=== PATIENT | female | born 1940 | race Caucasian/White ===

== ENCOUNTER 2018-12-20 17:09 | Inpatient (IN) | payer OTHER ==
[2018-12-20] MEDS: DEXAMETHASONE 10 MG/ML 1 ML INJ IV (17:43)
[2018-12-20] MEDS: SODIUM CHLORIDE 0.9% 1L BAG IV* (17:43)
[2018-12-20] MEDS: LEVOFLOXACIN 750MG/D5W (PMX) 150 ML IVPB ×2 (17:43→17:47)
[2018-12-20] MEDS: IPRATROPIUM (NEB) 0.5 MG/2.5 ML AMP INH (17:48)
[2018-12-20] MEDS: LEVALBUTEROL (NEB) 1.25 MG/0.5 ML AMP INH (17:48)
[2018-12-20 17:53] LABS: ADD MAN DIFF? NO
[2018-12-20 17:57] LABS: BASOPHIL # 0.1 10^3/ul (0.0-0.1); BASOPHILS % 0.5 % (0.0-2.0); EOSINOPHILS # 0.1 10^3/ul (0.0-0.5); EOSINOPHILS % 0.5 % (0.0-7.0); HEMATOCRIT 47.6 % (37.0-47.0); HEMOGLOBIN 15.3 g/dl (12.0-16.0); LYMPHOCYTES # 1.8 10^3/ul (0.8-2.9); LYMPHOCYTES % 15.1 % (15.0-51.0); MEAN CORPUSCULAR HEMOGLOBIN 29.1 pg (29.0-33.0); MEAN CORPUSCULAR HGB CONC 32.1 g/dl (32.0-37.0); MEAN CORPUSCULAR VOLUME 90.5 fl (82.0-101.0); MEAN PLATELET VOLUME 11.2 fl (7.4-10.4); MONOCYTES % 8.1 % (0.0-11.0); NEUTROPHIL # 8.9 10^3/ul (1.6-7.5); NEUTROPHILS % 75.6 % (39.0-77.0); PLATELET COUNT 214 10^3/UL (140-415); RED BLOOD COUNT 5.26 10^6/ul (4.20-5.40); RED CELL DISTRIBUTION WIDTH 13.3 % (11.5-14.5)
[2018-12-20 17:57] LABS: WHITE BLOOD COUNT 11.7 10^3/ul (4.8-10.8)
[2018-12-20 18:10] LABS: ADD UMIC YES; UR ASCORBIC ACID NEGATIVE (NEGATIVE); UR BACTERIA FEW /HPF (NONE SEEN); UR GLUCOSE (Dip) NEGATIVE (NEGATIVE); UR NITRITE (Dip) NEGATIVE (NEGATIVE); UR RBC > 182 /HPF (0-5); UR SPECIFIC GRAVITY (Dip) 1.016 (1.003-1.030); UR WBC 90 /HPF (0-5)
[2018-12-20 18:15] LABS: INR 0.89; PROTIME 12.1 Sec (11.9-14.9); PT RATIO 0.9
[2018-12-20 18:16] LABS: PARTIAL THROMBOPLASTIN TIME 41.7 Sec (23.0-35.0)
[2018-12-20 18:22] LABS: ALANINE AMINOTRANSFERASE 79 IU/L (13-69); ALBUMIN/GLOBULIN RATIO 1.29; ALKALINE PHOSPHATASE 101 IU/L (42-121); ANION GAP 7 (5-13); ASPARTATE AMINO TRANSFERASE 54 IU/L (15-46); BILIRUBIN,INDIRECT 0.7 mg/dl (0-1.1); BILIRUBIN,TOTAL 0.7 mg/dl (0.2-1.3); BLOOD UREA NITROGEN 19 mg/dl (7-20); CALCIUM 9.1 mg/dl (8.4-10.2); CARBON DIOXIDE 37 mmol/L (21-31); CHLORIDE 92 mmol/L (97-110); CREATININE 0.46 mg/dl (0.44-1.00); GLUCOSE 136 mg/dl (70-220); POTASSIUM 4.5 mmol/L (3.5-5.1); SODIUM 136 mmol/L (135-144); TOTAL PROTEIN 7.1 g/dl (6.1-8.1)
[2018-12-20 18:33] LABS: TROPONIN-I < 0.012 ng/ml (0.000-0.120)
[2018-12-20 19:32] LABS: AADO2 Arterial 26.1 mmHg (7.0-24.0); Allen Test ACCEPTAB; Arterial Base Excess 5.5 mmol/L (-3.0-3); Arterial Blood Gas Oxygen Sat 96.3 mmHG (95.0-100.0); Arterial COHb 0.8 % (0.0-3.0); Arterial Fraction of Oxyhgb 95.2 % (93.0-99.0); Arterial HCO3 35.2 mmol/L (22.0-26.0); Arterial MetHb 0.3 % (0.0-1.5); Arterial pCO2 76.3 mmhg (35-45); MODE NASAL CANNULA; Site Left Radial
[2018-12-20] MEDS: SOD CHLORIDE 0.9% 100 ML (19:45)
[2018-12-20] MEDS: IOHEXOL 100 ML (19:45)
[2018-12-20] MEDS ORDERED: ONDANSETRON 4 MG INJ IV (20:00)
[2018-12-20] MEDS ORDERED: ACETAMINOPHEN 325 MG TAB PO (20:00)
[2018-12-20 20:35] LABS: UR CLARITY SLIGHTLY CLOUDY (CLEAR); UR COLOR AMBER (YELLOW)
[2018-12-20 20:36] LABS: URINE PH (Dip) 6 (5.0-9.0)
[2018-12-20 20:37] LABS: UR BLOOD (Dip) NEGATIVE (NEGATIVE); UR TOTAL PROTEIN (Dip) 3+ mg/dl (NEGATIVE)
[2018-12-20 20:38] LABS: LACTIC ACID 1.9 mmol/L (0.5-2.0)
[2018-12-20 20:42] LABS: UR UROBILINOGEN (Dip) 1+ mg/dL (NEGATIVE)
[2018-12-20 20:44] LABS: UR KETONES (Dip) TRACE mg/dL (NEGATIVE)
[2018-12-20 20:45] LABS: UR BILIRUBIN (Dip) 1+ mg/dL (NEGATIVE)
[2018-12-20 20:46] LABS: UR LEUKOCYTE ESTERASE (Dip) NEGATIVE Leu/ul (NEGATIVE)
[2018-12-20] MEDS: DILTIAZEM 25 MG INJ IV ×2 (20:48→20:54)
[2018-12-20 20:59] LABS: UR MUCUS MANY /HPF (NONE SEEN)
[2018-12-20 23:53] LABS: LACTIC ACID 2.7 mmol/L (0.5-2.0)
[2018-12-21] MEDS ORDERED: NACL 0.9% 3 ML SYG IV (00:30)
[2018-12-21] MEDS ORDERED: ONDANSETRON 4 MG INJ IV (00:30)
[2018-12-21] MEDS ORDERED: IPRATROPIUM (NEB) 0.5 MG/2.5 ML AMP NEB (00:30)
[2018-12-21] MEDS: ENOXAPARIN 60 MG/0.6 ML SYG SC (00:34)
[2018-12-21 01:01] LABS: CREATINE KINASE 24 IU/L (23-200)
[2018-12-21 01:14] LABS: CK INDEX 11.4; CK-MB 2.73 ng/ml (0.0-2.4); TROPONIN-I < 0.012 ng/ml (0.000-0.120)
[2018-12-21 03:18] LABS: AADO2 Arterial 47.6 mmHg (7.0-24.0); Allen Test ACCEPTAB; Arterial Base Excess 7.1 mmol/L (-3.0-3); Arterial Blood Gas Oxygen Sat 95.6 mmHG (95.0-100.0); Arterial COHb 0.8 % (0.0-3.0); Arterial Fraction of Oxyhgb 94.5 % (93.0-99.0); Arterial HCO3 35.8 mmol/L (22.0-26.0); Arterial MetHb 0.3 % (0.0-1.5); Arterial pCO2 68.6 mmhg (35-45); MODE NASA CANNULA; Site Left Radial
[2018-12-21] MEDS: PANTOPRAZOLE (EC) 40 MG TAB PO (05:19)
[2018-12-21 05:36] LABS: AADO2 Arterial 38.1 mmHg (7.0-24.0); Allen Test ACCEPTAB; Arterial Base Excess 9.1 mmol/L (-3.0-3); Arterial Blood Gas Oxygen Sat 96.2 mmHG (95.0-100.0); Arterial COHb 0.7 % (0.0-3.0); Arterial Fraction of Oxyhgb 95.3 % (93.0-99.0); Arterial HCO3 38.4 mmol/L (22.0-26.0); Arterial MetHb 0.2 % (0.0-1.5); Arterial pCO2 74.4 mmhg (35-45); MODE NASAL CANNULA; Site Right Radial
[2018-12-21 06:49] LABS: CREATINE KINASE < 20 IU/L (23-200)
[2018-12-21 06:51] LABS: CK-MB 2.87 ng/ml (0.0-2.4); TROPONIN-I < 0.012 ng/ml (0.000-0.120)
[2018-12-21] MEDS: LEVOFLOXACIN 500MG/D5W (PMX) 100 ML IVPB (08:17)
[2018-12-21] MEDS: ENOXAPARIN 40 MG/0.4 ML SYG SC (08:17)
[2018-12-21] MEDS: METHYLPREDNISOLONE 125 MG INJ IV (08:17)
[2018-12-21] MEDS: DILTIAZEM 60 MG TAB PO ×2 (10:52→21:26)
[2018-12-21 11:15] LABS: CK-MB 2.51 ng/ml (0.0-2.4); TROPONIN-I < 0.012 ng/ml (0.000-0.120)
[2018-12-21 11:16] LABS: CREATINE KINASE < 20 IU/L (23-200)
[2018-12-21] MEDS ORDERED: LEVALBUTEROL (NEB) 0.63 MG/3 ML AMP HHN (12:30)
[2018-12-21 13:38] LABS: LACTIC ACID 0.9 mmol/L (0.5-2.0)
[2018-12-21] MEDS ORDERED: GUAIFENESIN 20 MG/ML 5ML CUP PO (17:00)
[2018-12-21] MEDS ORDERED: CEPASTAT LOZENGE MT (17:00)
[2018-12-21 18:24] LABS: CREATINE KINASE 23 IU/L (23-200)
[2018-12-21] MEDS: ACETAMINOPHEN 325 MG TAB PO (18:33)
[2018-12-21 18:37] LABS: CK INDEX 11.8; CK-MB 2.71 ng/ml (0.0-2.4); TROPONIN-I < 0.012 ng/ml (0.000-0.120)
[2018-12-21] MEDS ORDERED: NON-FORMULARY/PATIENT OWN MED (Lovastatin* 20 MG) PO (21:00)
[2018-12-21] MEDS: ATORVASTATIN 10 MG TAB PO (21:25)
[2018-12-22 05:54] LABS: ADD MAN DIFF? NO
[2018-12-22] MEDS: PANTOPRAZOLE (EC) 40 MG TAB PO (06:00)
[2018-12-22 06:04] LABS: WHITE BLOOD COUNT 18.2 10^3/ul (4.8-10.8)
[2018-12-22 06:04] LABS: ABNORMAL IP MESSAGE 1; BASOPHILS % 0.1 % (0.0-2.0); HEMATOCRIT 45.6 % (37.0-47.0); HEMOGLOBIN 14.5 g/dl (12.0-16.0); LYMPHOCYTES # 1.9 10^3/ul (0.8-2.9); LYMPHOCYTES % 10.6 % (15.0-51.0); MEAN CORPUSCULAR HEMOGLOBIN 29.2 pg (29.0-33.0); MEAN CORPUSCULAR HGB CONC 31.8 g/dl (32.0-37.0); MEAN CORPUSCULAR VOLUME 91.9 fl (82.0-101.0); MONOCYTE # 1.6 10^3/ul (0.3-0.9); MONOCYTES % 8.9 % (0.0-11.0); NEUTROPHIL # 14.5 10^3/ul (1.6-7.5); NEUTROPHILS % 79.7 % (39.0-77.0); PLATELET COUNT 219 10^3/UL (140-415); RED BLOOD COUNT 4.96 10^6/ul (4.20-5.40); RED CELL DISTRIBUTION WIDTH 13.5 % (11.5-14.5)
[2018-12-22 06:16] LABS: POSITIVE DIFF @See below
[2018-12-22 06:16] LABS: HEMOGLOBIN A1C 5.3 % (0-5.9)
[2018-12-22 06:40] LABS: ALANINE AMINOTRANSFERASE 60 IU/L (13-69); ALBUMIN 3.3 g/dl (3.3-4.9); ALBUMIN/GLOBULIN RATIO 1.17; ALKALINE PHOSPHATASE 76 IU/L (42-121); ASPARTATE AMINO TRANSFERASE 35 IU/L (15-46); BILIRUBIN,INDIRECT 0.4 mg/dl (0-1.1); BILIRUBIN,TOTAL 0.4 mg/dl (0.2-1.3); BLOOD UREA NITROGEN 12 mg/dl (7-20); CALCIUM 9.3 mg/dl (8.4-10.2); CHLORIDE 91 mmol/L (97-110); CHOL/HDL RATIO 3.4 RATIO; CHOLESTEROL 122 mg/dl (100-200); CREATININE 0.58 mg/dl (0.44-1.00); GLUCOSE 115 mg/dl (70-220); HDL CHOLESTEROL 35 mg/dl (33-92); LDL CHOLESTEROL,CALCULATED 73 mg/dl; MAGNESIUM 2.1 mg/dl (1.7-2.5); POTASSIUM 4.9 mmol/L (3.5-5.1); SODIUM 139 mmol/L (135-144); TOTAL PROTEIN 6.1 g/dl (6.1-8.1); TRIGLYCERIDES 69 mg/dl (0-149)
[2018-12-22 07:04] LABS: THYROID STIMULATING HORMONE 0.096 MIU/L (0.465-4.680)
[2018-12-22 07:20] LABS: ANION GAP 3 (5-13)
[2018-12-22 07:23] LABS: CARBON DIOXIDE 45 mmol/L (21-31)
[2018-12-22] MEDS: METHYLPREDNISOLONE 125 MG INJ IV ×2 (08:33→18:14)
[2018-12-22] MEDS: LEVOFLOXACIN 500MG/D5W (PMX) 100 ML IVPB (08:33)
[2018-12-22] MEDS: DILTIAZEM 60 MG TAB PO ×3 (08:34→21:06)
[2018-12-22] MEDS: ENOXAPARIN 40 MG/0.4 ML SYG SC (08:42)
[2018-12-22] MEDS: IPRATROPIUM (NEB) 0.5 MG/2.5 ML AMP HHN ×2 (13:30→19:51)
[2018-12-22] MEDS: LEVALBUTEROL (NEB) 0.63 MG/3 ML AMP HHN ×2 (13:31→19:52)
[2018-12-22] MEDS: DIGOXIN 500 MCG INJ IV ×3 (13:46→21:10)
[2018-12-22] MEDS ORDERED: ALBUTEROL/IPRATROPIUM (NEB) 3 ML AMP HHN (14:00)
[2018-12-22] MEDS: DILTIAZEM-D5W 125MG/125ML DRIP 125 ML IV ×3 (15:13→16:36)
[2018-12-22] MEDS ORDERED: DILTIAZEM 60 MG TAB PO (16:30)
[2018-12-22] MEDS: ATORVASTATIN 10 MG TAB PO (21:05)
[2018-12-22] MEDS: ENOXAPARIN 60 MG/0.6 ML SYG SC (21:08)
[2018-12-23] MEDS: LEVALBUTEROL (NEB) 0.63 MG/3 ML AMP HHN ×4 (01:10→19:46)
[2018-12-23] MEDS: IPRATROPIUM (NEB) 0.5 MG/2.5 ML AMP HHN ×4 (01:10→19:46)
[2018-12-23] MEDS: METHYLPREDNISOLONE 125 MG INJ IV ×3 (01:57→17:56)
[2018-12-23 06:22] LABS: ADD MAN DIFF? NO
[2018-12-23 06:26] LABS: BASOPHILS % 0.1 % (0.0-2.0); HEMATOCRIT 47.1 % (37.0-47.0); HEMOGLOBIN 14.6 g/dl (12.0-16.0); LYMPHOCYTES # 0.8 10^3/ul (0.8-2.9); LYMPHOCYTES % 5.5 % (15.0-51.0); MEAN CORPUSCULAR VOLUME 93.6 fl (82.0-101.0); MEAN PLATELET VOLUME 10.7 fl (7.4-10.4); MONOCYTE # 0.3 10^3/ul (0.3-0.9); MONOCYTES % 1.8 % (0.0-11.0); NEUTROPHIL # 13.1 10^3/ul (1.6-7.5); NEUTROPHILS % 91.7 % (39.0-77.0); PLATELET COUNT 232 10^3/UL (140-415); RED BLOOD COUNT 5.03 10^6/ul (4.20-5.40); RED CELL DISTRIBUTION WIDTH 13.3 % (11.5-14.5)
[2018-12-23 06:26] LABS: WHITE BLOOD COUNT 14.2 10^3/ul (4.8-10.8)
[2018-12-23] MEDS: PANTOPRAZOLE (EC) 40 MG TAB PO (06:29)
[2018-12-23 06:46] LABS: CREATINE KINASE < 20 IU/L (23-200)
[2018-12-23 06:48] LABS: ALANINE AMINOTRANSFERASE 54 IU/L (13-69); ALBUMIN 3.2 g/dl (3.3-4.9); ALBUMIN/GLOBULIN RATIO 1.33; ALKALINE PHOSPHATASE 73 IU/L (42-121); ASPARTATE AMINO TRANSFERASE 25 IU/L (15-46); BILIRUBIN,INDIRECT 0.4 mg/dl (0-1.1); BILIRUBIN,TOTAL 0.4 mg/dl (0.2-1.3); BLOOD UREA NITROGEN 17 mg/dl (7-20); CALCIUM 9.1 mg/dl (8.4-10.2); CHLORIDE 90 mmol/L (97-110); CREATININE 0.51 mg/dl (0.44-1.00); GLUCOSE 149 mg/dl (70-220); MAGNESIUM 2.1 mg/dl (1.7-2.5); POTASSIUM 5.2 mmol/L (3.5-5.1); SODIUM 139 mmol/L (135-144); TOTAL PROTEIN 5.6 g/dl (6.1-8.1)
[2018-12-23 06:56] LABS: B-TYPE NATRIURETIC PEPTIDE 3090 PG/ML (0-450)
[2018-12-23 06:58] LABS: CK-MB 2.43 ng/ml (0.0-2.4)
[2018-12-23 07:04] LABS: FREE T4 (FREE THYROXINE) 1.63 ng/dl (0.78-2.44)
[2018-12-23 07:15] LABS: ANION GAP 0 (5-13); CARBON DIOXIDE 49 mmol/L (21-31)
[2018-12-23] MEDS: LEVOFLOXACIN 500MG/D5W (PMX) 100 ML IVPB (08:12)
[2018-12-23] MEDS: DILTIAZEM 60 MG TAB PO ×2 (08:12→13:08)
[2018-12-23] MEDS: ENOXAPARIN 60 MG/0.6 ML SYG SC ×2 (08:27→21:15)
[2018-12-23] MEDS: DILTIAZEM-D5W 125MG/125ML DRIP 125 ML IV ×2 (09:42→13:39)
[2018-12-23 09:44] LABS: AADO2 Arterial 29.1 mmHg (7.0-24.0); Allen Test ACCEPTAB; Arterial Base Excess 14.2 mmol/L (-3.0-3); Arterial Blood Gas Oxygen Sat 90.2 mmHG (95.0-100.0); Arterial HCO3 45.5 mmol/L (22.0-26.0); Arterial MetHb 0.3 % (0.0-1.5); Arterial pCO2 88.4 mmhg (35-45); MODE NASAL CANNULA; Site Right Radial
[2018-12-23] MEDS: DILTIAZEM 90 MG TAB PO ×2 (17:55→21:17)
[2018-12-23] MEDS: ATORVASTATIN 10 MG TAB PO (21:17)
[2018-12-24] MEDS: LEVALBUTEROL (NEB) 0.63 MG/3 ML AMP HHN ×4 (01:23→19:43)
[2018-12-24] MEDS: IPRATROPIUM (NEB) 0.5 MG/2.5 ML AMP HHN ×4 (01:23→19:43)
[2018-12-24] MEDS: METHYLPREDNISOLONE 125 MG INJ IV ×3 (01:53→17:11)
[2018-12-24 06:19] LABS: ADD MAN DIFF? NO
[2018-12-24 06:23] LABS: WHITE BLOOD COUNT 16.2 10^3/ul (4.8-10.8)
[2018-12-24 06:23] LABS: BASOPHILS % 0.1 % (0.0-2.0); HEMATOCRIT 48.1 % (37.0-47.0); HEMOGLOBIN 14.8 g/dl (12.0-16.0); LYMPHOCYTES # 0.7 10^3/ul (0.8-2.9); MEAN CORPUSCULAR HEMOGLOBIN 28.7 pg (29.0-33.0); MEAN CORPUSCULAR HGB CONC 30.8 g/dl (32.0-37.0); MEAN CORPUSCULAR VOLUME 93.2 fl (82.0-101.0); MEAN PLATELET VOLUME 10.4 fl (7.4-10.4); MONOCYTE # 0.6 10^3/ul (0.3-0.9); MONOCYTES % 3.8 % (0.0-11.0); NEUTROPHIL # 14.8 10^3/ul (1.6-7.5); NEUTROPHILS % 91.1 % (39.0-77.0); PLATELET COUNT 229 10^3/UL (140-415); RED BLOOD COUNT 5.16 10^6/ul (4.20-5.40); RED CELL DISTRIBUTION WIDTH 13.2 % (11.5-14.5)
[2018-12-24 06:38] LABS: BLOOD UREA NITROGEN 24 mg/dl (7-20); CALCIUM 9.3 mg/dl (8.4-10.2); CHLORIDE 89 mmol/L (97-110); CREATININE 0.58 mg/dl (0.44-1.00); GLUCOSE 184 mg/dl (70-220); POTASSIUM 4.9 mmol/L (3.5-5.1); SODIUM 138 mmol/L (135-144)
[2018-12-24] MEDS: PANTOPRAZOLE (EC) 40 MG TAB PO (06:39)
[2018-12-24 06:55] LABS: ANION GAP 5 (5-13); CARBON DIOXIDE 44 mmol/L (21-31)
[2018-12-24] MEDS: LEVOFLOXACIN 500MG/D5W (PMX) 100 ML IVPB (08:55)
[2018-12-24] MEDS: DILTIAZEM (CD) 180 MG CAP PO ×2 (08:56→20:25)
[2018-12-24] MEDS: PROPRANOLOL 20 MG TAB PO ×3 (08:56→20:25)
[2018-12-24] MEDS: ENOXAPARIN 60 MG/0.6 ML SYG SC ×2 (09:05→20:33)
[2018-12-24] MEDS: ATORVASTATIN 10 MG TAB PO (20:25)
[2018-12-25] MEDS: LEVALBUTEROL (NEB) 0.63 MG/3 ML AMP HHN ×4 (02:02→19:56)
[2018-12-25] MEDS: IPRATROPIUM (NEB) 0.5 MG/2.5 ML AMP HHN ×4 (02:02→19:56)
[2018-12-25] MEDS: METHYLPREDNISOLONE 125 MG INJ IV ×2 (02:49→08:18)
[2018-12-25] MEDS: PANTOPRAZOLE (EC) 40 MG TAB PO (06:23)
[2018-12-25] MEDS: OPHTHALMIC IRRIG SOLUTION 120 ML BOTH EYES (06:29)
[2018-12-25] MEDS: LEVOFLOXACIN 500MG/D5W (PMX) 100 ML IVPB (08:18)
[2018-12-25] MEDS: PROPRANOLOL 20 MG TAB PO ×2 (08:18→12:41)
[2018-12-25] MEDS: DILTIAZEM (CD) 180 MG CAP PO ×2 (08:18→20:56)
[2018-12-25] MEDS: ENOXAPARIN 60 MG/0.6 ML SYG SC (09:28)
[2018-12-25 12:31] LABS: AADO2 Arterial 53.6 mmHg (7.0-24.0); Allen Test ACCEPTAB; Arterial Base Excess 12.7 mmol/L (-3.0-3); Arterial Blood Gas Oxygen Sat 92.8 mmHG (95.0-100.0); Arterial Fraction of Oxyhgb 91.6 % (93.0-99.0); Arterial HCO3 42.9 mmol/L (22.0-26.0); Arterial MetHb 0.3 % (0.0-1.5); Arterial pCO2 79.5 mmhg (35-45); MODE NASAL CANNULA; Site Right Radial
[2018-12-25 13:01] LABS: FREE T3 2.89 pg/ml (2.77-5.27)
[2018-12-25] MEDS: METHYLPREDNISOLONE 40 MG INJ IV (17:07)
[2018-12-25] MEDS: TIOTROPIUM 18 MCG CAPSULE INHA DEV INH (18:56)
[2018-12-25] MEDS: FLUTICASONE/VILANTEROL 100-25 INH (18:57)
[2018-12-25] MEDS: METOPROLOL (XL) 50 MG TAB PO (20:56)
[2018-12-25] MEDS: MONTELUKAST 10 MG TAB PO (20:56)
[2018-12-25] MEDS: ATORVASTATIN 10 MG TAB PO (20:56)
[2018-12-25] MEDS: METHIMAZOLE 5 MG TAB PO (20:56)
[2018-12-26] MEDS: METHYLPREDNISOLONE 40 MG INJ IV ×3 (00:10→22:02)
[2018-12-26] MEDS: IPRATROPIUM (NEB) 0.5 MG/2.5 ML AMP HHN ×4 (01:34→19:38)
[2018-12-26] MEDS: LEVALBUTEROL (NEB) 0.63 MG/3 ML AMP HHN ×4 (01:34→19:32)
[2018-12-26] MEDS: PANTOPRAZOLE (EC) 40 MG TAB PO (05:15)
[2018-12-26 08:28] LABS: ADD MAN DIFF? NO
[2018-12-26 08:35] LABS: BASOPHILS % 0.1 % (0.0-2.0); HEMATOCRIT 51.2 % (37.0-47.0); HEMOGLOBIN 15.7 g/dl (12.0-16.0); LYMPHOCYTES # 0.9 10^3/ul (0.8-2.9); MEAN CORPUSCULAR HGB CONC 30.7 g/dl (32.0-37.0); MEAN CORPUSCULAR VOLUME 94.5 fl (82.0-101.0); MEAN PLATELET VOLUME 10.5 fl (7.4-10.4); MONOCYTE # 0.6 10^3/ul (0.3-0.9); NEUTROPHIL # 12.9 10^3/ul (1.6-7.5); NEUTROPHILS % 89.1 % (39.0-77.0); PLATELET COUNT 246 10^3/UL (140-415); RED BLOOD COUNT 5.42 10^6/ul (4.20-5.40); RED CELL DISTRIBUTION WIDTH 13.2 % (11.5-14.5)
[2018-12-26 08:35] LABS: WHITE BLOOD COUNT 14.5 10^3/ul (4.8-10.8)
[2018-12-26] MEDS: LEVOFLOXACIN 500MG/D5W (PMX) 100 ML IVPB (09:18)
[2018-12-26] MEDS: METOPROLOL (XL) 50 MG TAB PO ×2 (09:19→22:04)
[2018-12-26] MEDS: DILTIAZEM (CD) 180 MG CAP PO ×2 (09:19→22:03)
[2018-12-26] MEDS: TIOTROPIUM 18 MCG CAPSULE INHA DEV INH (09:20)
[2018-12-26] MEDS: FLUTICASONE/VILANTEROL 100-25 INH (09:20)
[2018-12-26] MEDS: APIXABAN 5 MG TABLET PO (22:03)
[2018-12-26] MEDS: MONTELUKAST 10 MG TAB PO (22:03)
[2018-12-26] MEDS: ATORVASTATIN 10 MG TAB PO (22:03)
[2018-12-26] MEDS: METHIMAZOLE 5 MG TAB PO (22:04)
[2018-12-27] MEDS: IPRATROPIUM (NEB) 0.5 MG/2.5 ML AMP HHN ×4 (01:54→19:58)
[2018-12-27] MEDS: LEVALBUTEROL (NEB) 0.63 MG/3 ML AMP HHN ×4 (01:54→19:58)
[2018-12-27] MEDS: PANTOPRAZOLE (EC) 40 MG TAB PO (05:30)
[2018-12-27 06:07] LABS: ADD MAN DIFF? NO
[2018-12-27 06:08] LABS: BASOPHILS % 0.1 % (0.0-2.0); HEMATOCRIT 49.8 % (37.0-47.0); HEMOGLOBIN 15.3 g/dl (12.0-16.0); LYMPHOCYTES % 5.9 % (15.0-51.0); MEAN CORPUSCULAR HGB CONC 30.7 g/dl (32.0-37.0); MEAN CORPUSCULAR VOLUME 94.3 fl (82.0-101.0); MEAN PLATELET VOLUME 10.8 fl (7.4-10.4); MONOCYTE # 0.9 10^3/ul (0.3-0.9); MONOCYTES % 5.5 % (0.0-11.0); NEUTROPHIL # 14.8 10^3/ul (1.6-7.5); NEUTROPHILS % 87.7 % (39.0-77.0); PLATELET COUNT 234 10^3/UL (140-415); RED BLOOD COUNT 5.28 10^6/ul (4.20-5.40); RED CELL DISTRIBUTION WIDTH 13.4 % (11.5-14.5)
[2018-12-27 06:08] LABS: WHITE BLOOD COUNT 16.9 10^3/ul (4.8-10.8)
[2018-12-27 07:02] LABS: BLOOD UREA NITROGEN 25 mg/dl (7-20); CALCIUM 9.2 mg/dl (8.4-10.2); CHLORIDE 87 mmol/L (97-110); CREATININE 0.52 mg/dl (0.44-1.00); GLUCOSE 139 mg/dl (70-220); SODIUM 135 mmol/L (135-144)
[2018-12-27 07:18] LABS: ANION GAP 1 (5-13)
[2018-12-27 07:23] LABS: CARBON DIOXIDE 47 mmol/L (21-31)
[2018-12-27] MEDS: APIXABAN 5 MG TABLET PO ×2 (08:56→20:35)
[2018-12-27] MEDS: TIOTROPIUM 18 MCG CAPSULE INHA DEV INH (08:56)
[2018-12-27] MEDS: METOPROLOL (XL) 50 MG TAB PO ×2 (08:56→20:35)
[2018-12-27] MEDS: DILTIAZEM (CD) 180 MG CAP PO ×2 (08:57→20:35)
[2018-12-27] MEDS: METHYLPREDNISOLONE 40 MG INJ IV ×2 (08:57→20:35)
[2018-12-27] MEDS: FLUTICASONE/VILANTEROL 100-25 INH (08:58)
[2018-12-27] MEDS: MONTELUKAST 10 MG TAB PO (20:34)
[2018-12-27] MEDS: ATORVASTATIN 10 MG TAB PO (20:35)
[2018-12-27] MEDS: METHIMAZOLE 5 MG TAB PO (20:35)
[2018-12-28] MEDS: LEVALBUTEROL (NEB) 0.63 MG/3 ML AMP HHN ×4 (01:39→21:03)
[2018-12-28] MEDS: IPRATROPIUM (NEB) 0.5 MG/2.5 ML AMP HHN ×4 (01:39→21:03)
[2018-12-28] MEDS: PANTOPRAZOLE (EC) 40 MG TAB PO (06:37)
[2018-12-28] MEDS: APIXABAN 5 MG TABLET PO ×2 (09:27→21:30)
[2018-12-28] MEDS: DILTIAZEM (CD) 180 MG CAP PO ×2 (09:28→21:29)
[2018-12-28] MEDS: METOPROLOL (XL) 50 MG TAB PO ×2 (09:29→21:30)
[2018-12-28] MEDS: METHYLPREDNISOLONE 40 MG INJ IV ×2 (09:29→21:30)
[2018-12-28] MEDS: FLUTICASONE/VILANTEROL 100-25 INH (11:07)
[2018-12-28] MEDS: TIOTROPIUM 18 MCG CAPSULE INHA DEV INH (11:07)
[2018-12-28] MEDS: METHIMAZOLE 5 MG TAB PO (21:29)
[2018-12-28] MEDS: MONTELUKAST 10 MG TAB PO (21:29)
[2018-12-28] MEDS: ATORVASTATIN 10 MG TAB PO (21:29)
[2018-12-29] MEDS: IPRATROPIUM (NEB) 0.5 MG/2.5 ML AMP HHN ×4 (02:17→20:10)
[2018-12-29] MEDS: LEVALBUTEROL (NEB) 0.63 MG/3 ML AMP HHN ×4 (02:17→20:10)
[2018-12-29] MEDS: PANTOPRAZOLE (EC) 40 MG TAB PO (05:59)
[2018-12-29] MEDS: METHYLPREDNISOLONE 40 MG INJ IV ×2 (08:55→20:43)
[2018-12-29] MEDS: DILTIAZEM (CD) 180 MG CAP PO ×2 (08:56→20:43)
[2018-12-29] MEDS: METOPROLOL (XL) 50 MG TAB PO ×2 (08:57→20:44)
[2018-12-29] MEDS: APIXABAN 5 MG TABLET PO ×2 (08:57→20:43)
[2018-12-29] MEDS: FLUTICASONE/VILANTEROL 100-25 INH (09:03)
[2018-12-29] MEDS: TIOTROPIUM 18 MCG CAPSULE INHA DEV INH (09:03)
[2018-12-29] MEDS: ATORVASTATIN 10 MG TAB PO (20:44)
[2018-12-29] MEDS: METHIMAZOLE 5 MG TAB PO (20:44)
[2018-12-29] MEDS: MONTELUKAST 10 MG TAB PO (20:44)
[2018-12-30] MEDS: IPRATROPIUM (NEB) 0.5 MG/2.5 ML AMP HHN ×3 (02:00→13:37)
[2018-12-30] MEDS: LEVALBUTEROL (NEB) 0.63 MG/3 ML AMP HHN ×3 (02:00→13:37)
[2018-12-30] MEDS: PANTOPRAZOLE (EC) 40 MG TAB PO (05:15)
[2018-12-30 05:52] LABS: ADD MAN DIFF? NO
[2018-12-30 05:59] LABS: WHITE BLOOD COUNT 15.8 10^3/ul (4.8-10.8)
[2018-12-30 05:59] LABS: BASOPHILS % 0.2 % (0.0-2.0); HEMATOCRIT 45.1 % (37.0-47.0); HEMOGLOBIN 14.1 g/dl (12.0-16.0); LYMPHOCYTES # 0.8 10^3/ul (0.8-2.9); LYMPHOCYTES % 4.9 % (15.0-51.0); MEAN CORPUSCULAR HGB CONC 31.3 g/dl (32.0-37.0); MEAN CORPUSCULAR VOLUME 92.8 fl (82.0-101.0); MEAN PLATELET VOLUME 11.4 fl (7.4-10.4); MONOCYTE # 0.8 10^3/ul (0.3-0.9); MONOCYTES % 5.3 % (0.0-11.0); NEUTROPHILS % 88.6 % (39.0-77.0); PLATELET COUNT 176 10^3/UL (140-415); RED BLOOD COUNT 4.86 10^6/ul (4.20-5.40); RED CELL DISTRIBUTION WIDTH 13.3 % (11.5-14.5)
[2018-12-30 06:30] LABS: DIGOXIN < 0.4 ng/ml (1.0-2.0)
[2018-12-30 06:31] LABS: ALANINE AMINOTRANSFERASE 36 IU/L (13-69); ALBUMIN 2.7 g/dl (3.3-4.9); ALBUMIN/GLOBULIN RATIO 1.12; ALKALINE PHOSPHATASE 58 IU/L (42-121); ASPARTATE AMINO TRANSFERASE 19 IU/L (15-46); BILIRUBIN,INDIRECT 0.7 mg/dl (0-1.1); BILIRUBIN,TOTAL 0.7 mg/dl (0.2-1.3); BLOOD UREA NITROGEN 21 mg/dl (7-20); CALCIUM 8.9 mg/dl (8.4-10.2); CHLORIDE 89 mmol/L (97-110); GLUCOSE 157 mg/dl (70-220); POTASSIUM 4.9 mmol/L (3.5-5.1); SODIUM 136 mmol/L (135-144); TOTAL PROTEIN 5.1 g/dl (6.1-8.1)
[2018-12-30 07:12] LABS: ANION GAP 2 (5-13)
[2018-12-30 07:15] LABS: CARBON DIOXIDE 45 mmol/L (21-31)
[2018-12-30] MEDS: DIGOXIN 500 MCG INJ IV (09:11)
[2018-12-30] MEDS: FLUTICASONE/VILANTEROL 100-25 INH (09:11)
[2018-12-30] MEDS: TIOTROPIUM 18 MCG CAPSULE INHA DEV INH (09:12)
[2018-12-30] MEDS: METHYLPREDNISOLONE 40 MG INJ IV (09:12)
[2018-12-30] MEDS: APIXABAN 5 MG TABLET PO (09:13)
[2018-12-30] MEDS: DILTIAZEM (CD) 180 MG CAP PO (09:13)
[2018-12-30] MEDS: METOPROLOL (XL) 50 MG TAB PO (09:13)
== END 2018-12-30 14:10 | disposition home health service (06) | DRG 190 ==
LOC: 6WM 19:42 → E/R 17:09
DX: J44.1 Chronic obstructive pulmonary disease with (acute) exacerbation (principal); J96.21 Acute and chronic respiratory failure with hypoxia; J96.22 Acute and chronic respiratory failure with hypercapnia; I26.99 Other pulmonary embolism without acute cor pulmonale; I48.91 Unspecified atrial fibrillation; E05.90 Thyrotoxicosis, unspecified without thyrotoxic crisis or storm; I10 Essential (primary) hypertension; E78.5 Hyperlipidemia, unspecified; F41.9 Anxiety disorder, unspecified
CPT/HCPCS: 36415; 36600; 71045; 71275; 80048; 80053; 80061; 80162; 81001; 82550; 82553; 82803; 82962; 83036; 83605; 83735; 83880; 84439; 84443; 84481; 84484; 85025; 85610; 85730; 87040-91; 87086; 93005; 93306; 94640; 94644; 94660; 94664; 96374; 96375; 97116; 97162; 97167; 97530; 99285-25

== ENCOUNTER 2018-12-31 04:19 | Inpatient (IN) | payer OTHER ==
[2018-12-31] MEDS ORDERED: METHYLPREDNISOLONE 125 MG INJ (04:30)
[2018-12-31] MEDS: ALBUTEROL 0.083% (NEB) 2.5 MG/3 ML AMP HHN (04:55)
[2018-12-31] MEDS: IPRATROPIUM (NEB) 0.5 MG/2.5 ML AMP HHN (04:55)
[2018-12-31 04:57] LABS: ADD MAN DIFF? NO
[2018-12-31 05:00] LABS: ABNORMAL IP MESSAGE 1; BASOPHIL # 0.1 10^3/ul (0.0-0.1); BASOPHILS % 0.3 % (0.0-2.0); HEMOGLOBIN 14.1 g/dl (12.0-16.0); LYMPHOCYTES # 1.6 10^3/ul (0.8-2.9); LYMPHOCYTES % 7.2 % (15.0-51.0); MEAN CORPUSCULAR HEMOGLOBIN 29.2 pg (29.0-33.0); MEAN CORPUSCULAR VOLUME 91.1 fl (82.0-101.0); MEAN PLATELET VOLUME 11.2 fl (7.4-10.4); MONOCYTE # 2.4 10^3/ul (0.3-0.9); NEUTROPHIL # 17.8 10^3/ul (1.6-7.5); NEUTROPHILS % 80.4 % (39.0-77.0); PLATELET COUNT 167 10^3/UL (140-415); RED BLOOD COUNT 4.83 10^6/ul (4.20-5.40); RED CELL DISTRIBUTION WIDTH 13.2 % (11.5-14.5)
[2018-12-31 05:00] LABS: WHITE BLOOD COUNT 22.1 10^3/ul (4.8-10.8)
[2018-12-31] MEDS: METHYLPREDNISOLONE 125 MG INJ IV ×2 (05:01→09:16)
[2018-12-31 05:02] LABS: POSITIVE DIFF @See below
[2018-12-31 05:22] LABS: INR 0.98; PARTIAL THROMBOPLASTIN TIME 23.6 Sec (23.0-35.0); PROTIME 13.1 Sec (11.9-14.9)
[2018-12-31 05:25] LABS: ALANINE AMINOTRANSFERASE 91 IU/L (13-69); ALBUMIN 2.8 g/dl (3.3-4.9); ALBUMIN/GLOBULIN RATIO 1.03; ALKALINE PHOSPHATASE 72 IU/L (42-121); ASPARTATE AMINO TRANSFERASE 74 IU/L (15-46); BILIRUBIN,INDIRECT 1.1 mg/dl (0-1.1); BILIRUBIN,TOTAL 1.1 mg/dl (0.2-1.3); BLOOD UREA NITROGEN 24 mg/dl (7-20); CALCIUM 9.1 mg/dl (8.4-10.2); CHLORIDE 87 mmol/L (97-110); GLUCOSE 97 mg/dl (70-220); POTASSIUM 4.3 mmol/L (3.5-5.1); SODIUM 133 mmol/L (135-144); TOTAL PROTEIN 5.5 g/dl (6.1-8.1)
[2018-12-31] MEDS ORDERED: ACETAMINOPHEN 325 MG TAB PO ×2 (05:30→06:30)
[2018-12-31] MEDS ORDERED: ONDANSETRON 4 MG INJ IV ×2 (05:30→06:30)
[2018-12-31 05:36] LABS: B-TYPE NATRIURETIC PEPTIDE 2020 PG/ML (0-450); TROPONIN-I 0.028 ng/ml (0.000-0.120)
[2018-12-31 06:06] LABS: ANION GAP 3 (5-13); CARBON DIOXIDE 43 mmol/L (21-31)
[2018-12-31] MEDS ORDERED: CEPASTAT LOZENGE MT (06:30)
[2018-12-31] MEDS ORDERED: NACL 0.9% 3 ML SYG IV (06:30)
[2018-12-31 07:28] LABS: LACTIC ACID 1.1 mmol/L (0.5-2.0)
[2018-12-31] MEDS ORDERED: HEPARIN 5,000 UNIT/1 ML VIAL SC (09:00)
[2018-12-31] MEDS: APIXABAN 5 MG TABLET PO ×2 (09:17→20:48)
[2018-12-31] MEDS: DILTIAZEM (CD) 180 MG CAP PO ×2 (09:17→20:47)
[2018-12-31] MEDS: ALBUTEROL/IPRATROPIUM (NEB) 3 ML AMP HHN (10:14)
[2018-12-31] MEDS: FLUTICASONE/VILANTEROL 100-25 INH (10:34)
[2018-12-31] MEDS: TIOTROPIUM 18 MCG CAPSULE INHA DEV INH (10:35)
[2018-12-31 11:02] LABS: LACTIC ACID 2.1 mmol/L (0.5-2.0)
[2018-12-31] MEDS: LEVOFLOXACIN 750MG/D5W (PMX) 150 ML IVPB (13:36)
[2018-12-31] MEDS: MONTELUKAST 10 MG TAB PO (20:48)
[2018-12-31] MEDS: ATORVASTATIN 10 MG TAB PO (20:48)
[2018-12-31] MEDS: METHIMAZOLE 5 MG TAB PO (20:48)
[2018-12-31] MEDS: SOD CHLORIDE 0.45% 1,000 ML IV (20:48)
[2019-01-01 01:39] LABS: LACTIC ACID 1.2 mmol/L (0.5-2.0)
[2019-01-01] MEDS: ALBUTEROL/IPRATROPIUM (NEB) 3 ML AMP HHN ×3 (03:19→13:14)
[2019-01-01] MEDS: SOD CHLORIDE 0.45% 1,000 ML IV ×2 (05:00→10:01)
[2019-01-01 06:39] LABS: ADD MAN DIFF? NO
[2019-01-01 06:43] LABS: ABNORMAL IP MESSAGE 1; BASOPHIL # 0.1 10^3/ul (0.0-0.1); BASOPHILS % 0.3 % (0.0-2.0); HEMATOCRIT 43.2 % (37.0-47.0); HEMOGLOBIN 14.1 g/dl (12.0-16.0); LYMPHOCYTES # 0.9 10^3/ul (0.8-2.9); LYMPHOCYTES % 3.7 % (15.0-51.0); MEAN CORPUSCULAR HEMOGLOBIN 29.4 pg (29.0-33.0); MEAN CORPUSCULAR HGB CONC 32.6 g/dl (32.0-37.0); MEAN CORPUSCULAR VOLUME 90.2 fl (82.0-101.0); MEAN PLATELET VOLUME 11.4 fl (7.4-10.4); MONOCYTE # 1.8 10^3/ul (0.3-0.9); MONOCYTES % 7.3 % (0.0-11.0); NEUTROPHIL # 21.8 10^3/ul (1.6-7.5); NEUTROPHILS % 87.5 % (39.0-77.0); PLATELET COUNT 200 10^3/UL (140-415); RED BLOOD COUNT 4.79 10^6/ul (4.20-5.40); RED CELL DISTRIBUTION WIDTH 13.4 % (11.5-14.5)
[2019-01-01 06:43] LABS: WHITE BLOOD COUNT 24.9 10^3/ul (4.8-10.8)
[2019-01-01 06:52] LABS: POSITIVE DIFF @See below
[2019-01-01 07:05] LABS: ALANINE AMINOTRANSFERASE 70 IU/L (13-69); ALBUMIN/GLOBULIN RATIO 1.03; ALKALINE PHOSPHATASE 74 IU/L (42-121); ASPARTATE AMINO TRANSFERASE 33 IU/L (15-46); BILIRUBIN,INDIRECT 0.8 mg/dl (0-1.1); BILIRUBIN,TOTAL 0.8 mg/dl (0.2-1.3); BLOOD UREA NITROGEN 16 mg/dl (7-20); CALCIUM 8.9 mg/dl (8.4-10.2); CHLORIDE 89 mmol/L (97-110); CREATININE 0.47 mg/dl (0.44-1.00); GLUCOSE 147 mg/dl (70-220); POTASSIUM 3.5 mmol/L (3.5-5.1); SODIUM 135 mmol/L (135-144); TOTAL PROTEIN 5.9 g/dl (6.1-8.1)
[2019-01-01 07:15] LABS: ANION GAP 6 (5-13)
[2019-01-01 07:18] LABS: CARBON DIOXIDE 40 mmol/L (21-31)
[2019-01-01] MEDS: FLUTICASONE/VILANTEROL 100-25 INH (08:21)
[2019-01-01] MEDS: TIOTROPIUM 18 MCG CAPSULE INHA DEV INH (08:23)
[2019-01-01] MEDS: METHYLPREDNISOLONE 125 MG INJ IV (08:23)
[2019-01-01] MEDS: DILTIAZEM (CD) 180 MG CAP PO (08:23)
[2019-01-01] MEDS: APIXABAN 5 MG TABLET PO (08:23)
[2019-01-01] MEDS: METOPROLOL (XL) 25 MG TAB PO (08:58)
[2019-01-01] MEDS: LEVOFLOXACIN 750MG/D5W (PMX) 150 ML IVPB (12:28)
[2019-01-01] MEDS: DIGOXIN 0.125 MG TAB PO (12:28)
== END 2019-01-01 19:11 | disposition short-term general hospital (02) | DRG 191 ==
LOC: E/R 04:19 → TEL 05:03
DX: J44.1 Chronic obstructive pulmonary disease with (acute) exacerbation (principal); J96.11 Chronic respiratory failure with hypoxia; J96.12 Chronic respiratory failure with hypercapnia; I27.20 Pulmonary hypertension, unspecified; I48.0 Paroxysmal atrial fibrillation; Z99.81 Dependence on supplemental oxygen; I10 Essential (primary) hypertension; E78.5 Hyperlipidemia, unspecified; E03.9 Hypothyroidism, unspecified; Z85.72 Personal history of non-Hodgkin lymphomas; Z98.49 Cataract extraction status, unspecified eye; Z79.02 Long term (current) use of antithrombotics/antiplatelets; Z87.891 Personal history of nicotine dependence
CPT/HCPCS: 36415; 71045; 80053; 83605; 83880; 84484; 85025; 85610; 85730; 93005; 94640; 94644; 94664; 96374; 99285-25